=== PATIENT | male | born 1950 | race Caucasian/White ===

== ENCOUNTER 2021-11-23 14:28 | Emergency (ER) | payer BC ==
[~2021-11-23] VITALS: Ht 175.3 cm; Wt 82.0 kg
[2021-11-23 14:31] VITALS: BP_DIAS 82
[2021-11-23] MEDS ORDERED: FLUORESCEIN SODIUM 1MG/STRIP BOTHEYE ONE (14:45)
[2021-11-23] MEDS ORDERED: TETRACAINE 0.5% OPHTH DROPS 4ML BOTHEYE ONE (14:45)
[2021-11-23 16:24] VITALS: BP_SYST 151
== END 2021-11-23 16:25 | disposition home or self-care (01) ==
LOC: ER 14:42
DX: S05.12XA Contusion of eyeball and orbital tissues, left eye, initial encounter (principal); H57.12 Ocular pain, left eye; X58.XXXA Exposure to other specified factors, initial encounter; Y93.89 Activity, other specified; Y92.89 Other specified places as the place of occurrence of the external cause; Y99.8 Other external cause status
CPT/HCPCS: 70486; 99284